=== PATIENT | male | born 1985 | race Caucasian/White ===

== ENCOUNTER 2019-07-31 08:09 | Emergency (ER) | payer MEDICARE ==
[2019-07-31 08:48] VITALS: BP 101/61
[2019-07-31 09:01] LABS: Influenza A Molecular POSITIVE (Negative)
--- NOTE | 2019-07-31 10:32 | UC ---
Respiratory Complaint HPI - HPI Summary HPI Summary: cough x 4 days , cough is productive with yellow sputum worse with deep breathing, better with rest and o2 +fever, chills, body and joint pain + sob with low O2 , has been using home oxygen + joint and body aches - History of Current Complaint Chief Complaint: UCGeneralIllness Stated Complaint: FLU SYMP Time Seen by Provider: 07/31/19 08:44 Hx Obtained From: Patient Onset/Duration: Gradual Onset, Lasting Days - 4, Still Present Timing: Constant Severity Initially: Moderate Severity Currently: Moderate Pain Intensity: 0 Pain Scale Used: 0-10 Numeric Character: Cough: Productive Aggravating Factors: Exertion, Deep Breaths Alleviating Factors: Nothing Associated Signs And Symptoms: Positive: Dyspnea, Fever, Chills, URI, Nasal Congestion. Negative: Pleuritic Chest Pain, Wheezing, Dizziness, Calf Pain, Calf Swelling - Allergies/Home Medications Allergies/Adverse Reactions: Allergies Allergy/AdvReac Type Severity Reaction Status Date / Time No Known Allergies Allergy Verified 07/31/19 08:38 Home Medications: Home Medications Allopurinol TAB* [Zyloprim 300 MG TAB*] 300 mg PO DAILY 07/31/19 [History Confirmed 07/31/19] Dofetilide CAP* [Tikosyn CAP*] 500 mcg PO BID 07/31/19 [History Confirmed ] PMH/Surg Hx/FS Hx/Imm Hx - Additional Past Medical History Additional PMH: Yes: tricuspid atrizia type 1B, afib paragangleoma, venous insufficiency, gout Cardiovascular History: Cardiac Disease - Surgical History Surgical History: Yes Surgery Procedure, Year, and Place: 9- open heart surgeries. growth removals. by-pass in R leg to improve circulation. R nephrectomy. paragangleoma removal x2 - Family History Known Family History: Positive: Non-Contributory - Social History Alcohol Use: None Substance Use Type: None Smoking Status (MU): Never Smoked Tobacco Review of Systems All Other Systems Reviewed And Are Negative: Yes Constitutional: Positive: Fever, Chills, Fatigue Skin: Positive: Negative Eyes: Positive: Negative ENT: Positive: Sore Throat, Nasal Discharge Respiratory: Positive: Cough Is Patient Immunocompromised?: Yes Physical Exam Triage Information Reviewed: Yes Appearance: Ill-Appearing, Pain Distress Vital Signs: Initial Vital Signs Temp 97.1 F 07/31/19 08:41 Pulse 78 07/31/19 08:41 Resp 15 07/31/19 08:41 BP 101/61 07/31/19 08:41 Pulse Ox 89 07/31/19 08:41 Vital Signs Reviewed: Yes Eye Exam: Normal Eyes: Positive: Conjunctiva Clear ENT: Positive: Normal ENT inspection, Hearing grossly normal, Pharynx normal, Other - thrush Neck: Positive: Supple, Nontender, No Lymphadenopathy Respiratory: Positive: Chest non-tender, Respiratory distress, Crackles, Rhonchi Cardiovascular: Positive: RRR, No Murmur, Pulses Normal Abdominal Exam: Normal Diagnostics - Radiology No standard instances Radiology Interpretation Completed By: Radiologist Summary of Radiographic Findings: chest xray report: IMPRESSION: 1. MILD CARDIOMEGALY AND DIFFUSE PROMINENCE OF THE INTERSTITIAL MARKINGS SUGGESTING THE POSSIBILITY OF INTERSTITIAL PULMONARY EDEMA. 2. MORE FOCAL INFILTRATE AT THE RIGHT LUNG BASE POSSIBLY SECONDARY TO PULMONARY EDEMA OR PNEUMONIA. 3. INCREASED DENSITY IN THE MEDIASTINUM POSSIBLY REPRESENTING MEDIASTINAL LYMPHADENOPATHY OR PROMINENT VASCULAR STRUCTURES. RECOMMEND A CT OF THE CHEST WITH CONTRAST FOR FURTHER EVALUATION. Respiratory Course/Dx - Differential Dx/Diagnosis Provider Diagnosis: Influenza, Pneumonia, Thrush Discharge ED - Sign-Out/Discharge Documenting (check all that apply): Patient Departure All imaging exams completed and their final reports reviewed: Yes - Discharge Plan Condition: Stable Disposition: HOME Prescriptions: DOXYcycline CAP(*) [DOXYcycline 100MG CAP(*)] 100 mg PO BID #20 cap Nystatin SUSPENSION* 5 ml MT QID #140 ml Oseltamivir SUSP 75 MG dose* [Tamiflu SUSP 75 MG dose*] 75 mg PO BID #10 oral.syrin Patient Education Materials: Influenza (ED), Community Acquired Pneumonia (ED) Referrals: Christopher Fischer [Primary Care Provider] - 5 Days - Billing Disposition and Condition Condition: STABLE Disposition: Home
== END 2019-07-31 09:55 | disposition home or self-care (01) ==
LOC: UCCORT 08:09
DX: J11.00 Influenza due to unidentified influenza virus with unspecified type of pneumonia (principal); B37.9 Candidiasis, unspecified; R06.02 Shortness of breath; I48.91 Unspecified atrial fibrillation; I51.7 Cardiomegaly; M10.9 Gout, unspecified; Z79.899 Other long term (current) drug therapy; Z99.81 Dependence on supplemental oxygen
CPT/HCPCS: 71046; 99212; G0463

== ENCOUNTER 2019-08-06 08:30 | Emergency (ER) | payer MEDICARE ==
[2019-08-06 08:58] VITALS: BP 85/68
--- NOTE | 2019-08-06 09:25 | UC ---
Throat Pain/Nasal Jay HPI - HPI Summary HPI Summary: 34-year-old male who presents today with a sore throat over the past couple of days. He was diagnosed with pneumonia last week and is been taking doxycycline as directed. He states that his only complaint today is the sore throat, he feels like the pneumonia is improving. He denies any fever or chills. Although he goes to [facility] for minor illnesses he is under the care of specialists in [place] for the paraganglioma. - History of Current Complaint Chief Complaint: UCRespiratory Stated Complaint: SORE THROAT CONGESTION Time Seen by Provider: 08/06/19 08:56 Hx Obtained From: Patient Onset/Duration: Gradual Onset Severity: Moderate Pain Intensity: 10 Cough: Nonproductive - Cough is moist and loose. Patient states he has had significant improvement. Associated Signs & Symptoms: Positive: Negative - Allergies/Home Medications Allergies/Adverse Reactions: Allergies Allergy/AdvReac Type Severity Reaction Status Date / Time No Known Allergies Allergy Verified 08/06/19 08:55 PMH/Surg Hx/FS Hx/Imm Hx Previously Healthy: Yes Cardiovascular History: Cardiac Disease, Atrial Fibrillation Respiratory History: Pneumonia - Seen here last week and treated for pneumonia. He also states he had thrush diagnosed last week and is on nystatin. - Surgical History Surgical History: Yes Surgery Procedure, Year, and Place: 9- open heart surgeries. growth removals. by-pass in R leg to improve circulation. R nephrectomy. paragangleoma removal x2 - Family History Known Family History: Positive: Non-Contributory - Social History Occupation: Disabled Lives: With Family Alcohol Use: None Substance Use Type: None Smoking Status (MU): Never Smoked Tobacco Review of Systems All Other Systems Reviewed And Are Negative: Yes ENT: Positive: Sore Throat Respiratory: Positive: Cough - Moist cough which has improved since last week. Is Patient Immunocompromised?: No Physical Exam Triage Information Reviewed: Yes Appearance: Well-Appearing, No Pain Distress, Well-Nourished Vital Signs: Initial Vital Signs Temp 97.6 F 08/06/19 08:52 Pulse 89 08/06/19 08:52 Resp 22 08/06/19 08:52 BP 85/68 08/06/19 08:52 Pulse Ox 89 08/06/19 08:52 Vital Signs Reviewed: Yes Eyes: Positive: Conjunctiva Clear ENT: Positive: Pharyngeal erythema - Minimal pharyngeal erythema., TMs normal, Uvula midline. Negative: Tonsillar swelling, Tonsillar exudate, Trismus Neck: Positive: Supple, Nontender, No Lymphadenopathy Respiratory: Positive: No respiratory distress, No accessory muscle use, Rhonchi - Scattered rhonchi but loose with good air movement. No distress Cardiovascular: Positive: RRR, No Murmur, Pulses Normal, Brisk Capillary Refill Musculoskeletal Exam: Normal Neurological Exam: Normal Psychological Exam: Normal Skin Exam: Normal Throat Pain/Nasal Course/Dx - Course Course Of Treatment: Rapid strep test: Negative The patient is comfortable here. He states that his symptoms are improving from the pneumonia and he continues the doxycycline. I am going to send the strep test for culture. He is to follow-up with his primary care provider by phone today to make an appointment for follow-up for the pneumonia. If he has any worsening symptoms he is to go to the emergency room. The patient verbalized understanding of these instructions. - Differential Dx/Diagnosis Provider Diagnosis: Pharyngitis Discharge ED - Sign-Out/Discharge Documenting (check all that apply): Patient Departure All imaging exams completed and their final reports reviewed: No Studies - Discharge Plan Condition: Fair Disposition: HOME Patient Education Materials: Pharyngitis (ED) Referrals: Christopher Fischer [Primary Care Provider] - Additional Instructions: Warm saltwater gargles, Tylenol for pain, follow-up with your primary care provider in 3 or 4 days if continued sore throat or worsening symptoms. Called them today to make an appointment for recheck to follow-up with the pneumonia treatment. Continue the doxycycline as directed. - Billing Disposition and Condition Condition: FAIR Disposition: Home
== END 2019-08-06 09:32 | disposition home or self-care (01) ==
LOC: UCCORT 08:30
DX: J02.9 Acute pharyngitis, unspecified (principal)
CPT/HCPCS: 87070; 87651; 99212; G0463